=== PATIENT | male | born 1980 | race Caucasian/White ===

== ENCOUNTER 2017-07-23 19:59 | Emergency (ER) | payer BC ==
[~2017-07-23] VITALS: Ht 182.9 cm; Wt 102.1 kg
--- NOTE | 2017-07-23 22:01 | NUR ---
MSE COMPLETED, IV D/C'D INTACT, PT STATED DECREASED HEADACHE. PT D/C'D HOME, ACI/REFERRAL GIVEN. PT AMBULATED W/O DIFF/TOOK ALL BELONGINGS.
[2017-07-23 22:03] VITALS: BP 142/92
== END 2017-07-23 22:04 | disposition home or self-care (01) ==
LOC: ER 20:07
DX: R51 Headache (principal)
CPT/HCPCS: 70450; 96374; 99284; A4663; J1885

== ENCOUNTER 2019-08-21 18:41 | Emergency (ER) | payer BC ==
[~2019-08-21] VITALS: Ht 182.9 cm; Wt 100.7 kg
--- NOTE | 2019-08-21 19:02 | NUR ---
PT WAS EVALUATED BY DR ANDINO. PT WAS D/C TO HOME. D/C INSTRUCTIONS GIVEN TO THE PT.
[2019-08-21 19:06] VITALS: BP 141/88
== END 2019-08-21 19:07 | disposition home or self-care (01) ==
LOC: ER 18:44
DX: G56.22 Lesion of ulnar nerve, left upper limb (principal)
CPT/HCPCS: A4663